=== PATIENT | male | born 2000 | race Two or more races ===

== ENCOUNTER → 2025-02-15 | Outpatient (CLI) | payer BC, OTHER, SELFPAY ==
[2025-02-15 08:49] LABS: Thyroid Stimulating Hormone 1.21 uIU/mL (0.55-4.78)
== END | disposition home or self-care (01) ==
LOC: COPL 07:00
PROVIDERS: PCP Family Medicine; Referring Provider Family Medicine; Visit Provider Family Medicine
DX: E03.9 Hypothyroidism, unspecified (principal)
CPT/HCPCS: 36415; 84443

== ENCOUNTER → 2025-07-07 | Outpatient (CLI) | payer OTHER, BC, SELFPAY ==
[2025-07-07 12:24] LABS: Thyroid Stimulating Hormone 2.03 uIU/mL (0.55-4.78)
== END | disposition home or self-care (01) ==
PROVIDERS: PCP Family Medicine; Referring Provider Family Medicine; Visit Provider Family Medicine
DX: E03.9 Hypothyroidism, unspecified (principal)
CPT/HCPCS: 36415; 84443